=== PATIENT | female | born 1960 | race Caucasian/White ===

== ENCOUNTER → 2017-10-22 | Outpatient (CLI) | payer OTHER ==
[~2017-10-22] MED LIST: DICL100G19 PO; HYDR-3240 PO; IBUP-1221 PO; NAPR220C2 PO; NONE PER PT
== END ==
LOC: CFH 09:24
PROVIDERS: ATTEND Nurse Practitioner Primary Care
DX: M79.641 Pain in right hand (principal); E55.9 Vitamin D deficiency, unspecified; D64.9 Anemia, unspecified; R53.83 Other fatigue